=== PATIENT | female | born 1990 | race Caucasian/White ===

== ENCOUNTER 2016-10-04 21:44 | Emergency (ER) | payer OTHER ==
[~2016-10-04] VITALS: Ht 165.1 cm; Wt 127.1 kg
[2016-10-05] MEDS ORDERED: NAPROSYN500 MG PO (00:03)
[2016-10-05 00:11] VITALS: BP 140/99
== END 2016-10-05 00:13 | disposition home or self-care (01) ==
LOC: EME 21:44
PROC: 0HQ0XZZ Repair Scalp Skin, External Approach (ICD-10-PCS; principal; 2016-10-05)
DX: S01.01XA Laceration without foreign body of scalp, initial encounter (principal); W31.82XA Contact with other commercial machinery, initial encounter
CPT/HCPCS: 99281; 99284

== ENCOUNTER 2016-10-11 18:53 | Emergency (ER) | payer OTHER ==
[~2016-10-11] VITALS: Ht 165.1 cm; Wt 124.0 kg
[~2016-10-11 18:53] MED LIST: NAPROSYN500 MG PO
[2016-10-11 19:15] VITALS: BP 132/82
== END 2016-10-11 19:13 | disposition home or self-care (01) ==
LOC: EME 18:53
DX: S01.01XD Laceration without foreign body of scalp, subsequent encounter (principal); W45.8XXD Other foreign body or object entering through skin, subsequent encounter; Z48.02 Encounter for removal of sutures; F17.200 Nicotine dependence, unspecified, uncomplicated
CPT/HCPCS: 99281; 99283